=== PATIENT | male | born 1985 | race Caucasian/White ===

== ENCOUNTER 2020-05-02 18:36 | Emergency (ER) | payer MEDICAID ==
[~2020-05-02] VITALS: Ht 167.6 cm; Wt 77.1 kg
--- NOTE | 2020-05-02 18:36 | NUR ---
Patient BIBA ALS, transferred to bed 4. RN evaluating patient at bedside.
[2020-05-02 18:47] VITALS: BP 137/78
--- NOTE | 2020-05-02 18:47 | NUR ---
34 Y/O M BIBA FROM TRAFFIC. PER EMS PT DRIVING AND FOUND AT STOP SIGN SLEEPING. PER EMS PT HAD BEEN UNDER THE INFLUENCE, PD IN SCENE. PT TAKEN TO ER DUE TO VOMITING AND HIGH BLOOD SUGAR. PER EMS PT NKA. HX DM. RX METFORMIN - PT HAS NOT BEEN COMPLIANT WITH MEDICATION BS OF 351 ON THE FIELD. PT PRESENTS A/OX3, PRIMARILY GREEK SPEAKING, PRESENTS NAUSEA/VOMITING. BS IN ER 265. SIDE RAIL X1
[2020-05-02] MEDS ORDERED: NACL 0.9% 1,000 ML IV ONE ×2 (18:56→19:50)
[2020-05-02] MEDS ORDERED: ONDANSETRON 4 MG/2 ML VIAL IVP ONE (19:00)
[2020-05-02 19:13] LABS: BASOPHILS # (AUTO) 0.1 K/uL (0.00-0.22); BASOPHILS % (AUTO) 1.5 % (0.0-2.0); EOSINOPHILS % (AUTO) 0.8 % (0.0-4.0); HEMATOCRIT 40.4 % (36-52); HEMOGLOBIN 13.6 g/dL (12.0-18.0); LYMPHOCYTES # (AUTO) 1.5 K/uL (2.0-11.5); LYMPHOCYTES % (AUTO) 34.5 % (20.5-51.1); MEAN CORPUSCULAR HEMOGLOBIN 29 pg (27-31); MEAN CORPUSCULAR HGB CONC 34 g/dL (33-37); MEAN CORPUSCULAR VOLUME 86.8 fL (80-94); MONOCYTES # (AUTO) 0.4 K/uL (0.8-1.0); MONOCYTES % (AUTO) 10.3 % (1.7-9.3); NEUTROPHILS # (AUTO) 2.3 K/uL (1.8-7.7); NEUTROPHILS % (AUTO) 52.9 % (42.2-75.2); PLATELET COUNT (AUTO) 170 K/uL (140-450); RED BLOOD CELL COUNT(AUTO) 4.66 MIL/uL (4.20-6.10); RED CELL DISTRIBUTION WIDTH 13.1 % (11.6-13.7); WHITE BLOOD COUNT (AUTO) 4.4 K/uL (4.8-10.8)
--- NOTE | 2020-05-02 19:17 | NUR ---
pt has been taking to ct scan via [employer].
--- NOTE | 2020-05-02 19:18 | NUR ---
report gave to harley negron. transfer of care at this time.
--- NOTE | 2020-05-02 19:20 | NUR ---
RECEIVED REPORT FROM GEORGE GILES
[2020-05-02 19:28] LABS: ALBUMIN 3.9 g/dL (3.4-5.0); ANION GAP 16.9 (8-16); CARBON DIOXIDE 24.5 mmol/L (21-32); CREATININE 0.8 mg/dL (0.6-1.3); POTASSIUM 3.4 mmol/L (3.5-5.1); TOTAL BILIRUBIN 0.4 mg/dL (0.0-1.0)
--- NOTE | 2020-05-02 19:35 | NUR ---
PT RETURNED FROM CT. GAVE PATIENT URINAL, ADVISED WE NEED A URINE SPECIMEN.
--- NOTE | 2020-05-02 19:48 | NUR ---
COLLECTED URINE FROM PATIENT AND GIVEN TO LAB. PT REMAINS ON BEDSIDE MONITOR. SO SIGNS OF DISTRESS NOTED, REPIRATIONS REGULAR, EVEN, AND UNLABORED.
[2020-05-02 20:03] LABS: APPEARANCE,URINE CLEAR (CLEAR); BILIRUBIN,URINE NEGATIVE (NEGATIVE); BLOOD, URINE NEGATIVE (NEGATIVE); COLOR,URINE YELLOW (YELLOW); LEUKOCYTE ESTERASE ,URINE NEGATIVE (NEGATIVE); NITRITE, URINE NEGATIVE (NEGATIVE); UGLUCOSE 3+ (NEGATIVE)
[2020-05-02 21:31] LABS: BARBITURATE, URINE NEGATIVE ng/ml (NEG <=200); BENZODIAZEPINE, URINE NEGATIVE ng/mL (NEG <=200); CANNABINOID, URINE NEGATIVE ng/mL (NEG <=50); COCAINE, URINE NEGATIVE ng/mL (NEG <=300); OPIATE, URINE NEGATIVE ng/mL (NEG <=2000); PHENCYCLIDINE SCREEN,URINE NEGATIVE ng/mL (NEG <=25)
--- NOTE | 2020-05-02 21:42 | NUR ---
PT C/O PANCREAS PAIN, HX OF PANCREATITIS, MD AWARE, NO NEW MEDS ORDERED. PT TOLD HE IS GOING TO BE DISCHARGED HOME AND NEEDS TO CALL HIS TO COME PICK HIM UP. PT ON PHONE NOW.
[2020-05-02 22:10] VITALS: BP 117/63
--- NOTE | 2020-05-02 22:13 | NUR ---
Patient discharged with v/s stable. Written and verbal after care instructions given and explained. Patient verbalized understanding. Ambulatory with steady gait. All questions addressed prior to discharge. Advised to follow up with PMD.
== END 2020-05-02 22:10 | disposition home or self-care (01) ==
LOC: MED 18:36
DX: F10.129 Alcohol abuse with intoxication, unspecified (principal); R41.82 Altered mental status, unspecified; E11.65 Type 2 diabetes mellitus with hyperglycemia; Y90.9 Presence of alcohol in blood, level not specified
CPT/HCPCS: 36415; 70450; 80053; 80305; 81003; 83690; 85025; 96361; 96374; 99284; G0482; J2405; J7030